=== PATIENT | male | born 2000 | race Asian ===

== ENCOUNTER → 2022-03-14 | Outpatient (CLI) | payer BC ==
[2022-03-14 13:52] LABS: Basophils # (auto) 0 10 ^3/uL (0-0.2); Basophils % (auto) 0.5 % (0.0-2.0); Eosinophils # (auto) 0.1 10 ^3/uL (0-0.8); Eosinophils % (auto) 2.2 % (0.0-7.0); Hematocrit 46.6 % (41.0-53.0); Hemoglobin 15.3 g/dL (13.5-17.5); Lymphocytes # (auto) 1.5 10 ^3/uL (0.4-5.4); Lymphocytes % (auto) 28.1 % (10.0-50.0); Mean Corpuscular Hemoglobin 29.7 pg (28.0-32.0); Mean Corpuscular Hgb Conc. 32.8 g/dL (32.0-36.0); Mean Corpuscular Volume 90.6 fL (80.0-100.0); Monocytes # (auto) 0.4 10 ^3/uL (0-1.3); Neutrophils # (auto) 3.4 10 ^3/uL (1.6-8.6); Neutrophils % (auto) 62.2 % (37.0-80.0); Nucleated Red Blood Cells % 0.1 %; Red Blood Cells 5.14 10^6/uL (4.5-5.90); Red Cell Distribution Width 13.2 % (11.8-14.3); White Blood Cell 5.4 10^3/uL (4.4-10.8)
[2022-03-14 14:18] LABS: Urine Blood Negative /uL (Negative); Urine Specific Gravity 1.023 (1.001-1.035)
[2022-03-14 14:50] LABS: Albumin 4.4 g/dL (3.4-5.0); Calcium 8.9 mg/dL (8.5-10.1); Potassium 4.8 mmol/L (3.5-5.1); Uric Acid 6.1 mg/dL (3.5-7.2)
[2022-03-14 14:57] LABS: BUN/Creatinine Ratio 13.9; Bilirubin, Total 0.4 mg/dL (0.2-1.0); CRP High Sensitivity 0.04 mg/dL (< 0.3); Total Protein 8.1 g/dL (6.4-8.2)
== END | disposition home or self-care (01) ==
LOC: LAB 13:35
PROVIDERS: ATTEND Internal Medicine
DX: E79.0 Hyperuricemia without signs of inflammatory arthritis and tophaceous disease (principal); E78.41 Elevated Lipoprotein(a); R68.89 Other general symptoms and signs; R73.09 Other abnormal glucose; E61.2 Magnesium deficiency; R82.991 Hypocitraturia; E55.9 Vitamin D deficiency, unspecified; D51.9 Vitamin B12 deficiency anemia, unspecified; R82.90 Unspecified abnormal findings in urine
CPT/HCPCS: 36415; 80053; 80061; 81003; 82306; 83540; 84443; 84550; 85025; 85379; 86141

== ENCOUNTER → 2022-05-16 | Outpatient (CLI) | payer BC | END | disposition home or self-care (01) | LOC: Rad HDHVI 14:58 | PROVIDERS: ATTEND Internal Medicine Cardiovascular Disease | DX: R00.2 Palpitations (principal); R07.89 Other chest pain | CPT/HCPCS: 93306 ==

== ENCOUNTER → 2022-05-22 | Outpatient (CLI) | payer BC ==
[~2022-05-22] VITALS: Ht 177.8 cm; Wt 97.5 kg
== END | disposition home or self-care (01) ==
LOC: Rad HDHVI 14:08
PROVIDERS: ATTEND Internal Medicine Cardiovascular Disease
DX: R07.9 Chest pain, unspecified (principal); Z82.49 Family history of ischemic heart disease and other diseases of the circulatory system
CPT/HCPCS: 93017

== ENCOUNTER → 2022-10-22 | Outpatient (CLI) | payer BC ==
[2022-10-22 15:19] LABS: Basophils # (auto) 0.1 10 ^3/uL (0-0.2); Basophils % (auto) 0.9 % (0.0-2.0); Eosinophils # (auto) 0.2 10 ^3/uL (0-0.8); Eosinophils % (auto) 3.1 % (0.0-7.0); Hematocrit 46.4 % (41.0-53.0); Hemoglobin 15.7 g/dL (13.5-17.5); Lymphocytes # (auto) 1.8 10 ^3/uL (0.4-5.4); Lymphocytes % (auto) 29.3 % (10.0-50.0); Mean Corpuscular Hemoglobin 30.6 pg (28.0-32.0); Mean Corpuscular Hgb Conc. 33.9 g/dL (32.0-36.0); Mean Corpuscular Volume 90.2 fL (80.0-100.0); Monocytes # (auto) 0.5 10 ^3/uL (0-1.3); Monocytes % (auto) 8.4 % (0.0-12.0); Neutrophils # (auto) 3.7 10 ^3/uL (1.6-8.6); Neutrophils % (auto) 58.3 % (37.0-80.0); Nucleated Red Blood Cells % 0.2 %; Red Blood Cells 5.14 10^6/uL (4.5-5.90); Red Cell Distribution Width 13.4 % (11.8-14.3); White Blood Cell 6.3 10^3/uL (4.4-10.8)
[2022-10-22 15:30] LABS: Urine Bacteria NONE SEEN /hpf (None Seen); Urine Blood Negative /uL (Negative); Urine Specific Gravity 1.022 (1.001-1.035); Urine WBC 1 /hpf (0 - 3)
[2022-10-22 16:26] LABS: Albumin 4.1 g/dL (3.4-5.0); Calcium 8.8 mg/dL (8.5-10.1); Potassium 4.2 mmol/L (3.5-5.1)
[2022-10-22 16:40] LABS: BUN/Creatinine Ratio 13.2 (10.0-20.0); Bilirubin, Total 0.4 mg/dL (0.2-1.0); Uric Acid 6.4 mg/dL (3.5-7.2)
== END | disposition home or self-care (01) ==
LOC: LAB 15:04
PROVIDERS: ATTEND Nurse Practitioner Family
DX: Z00.00 Encounter for general adult medical examination without abnormal findings (principal)
CPT/HCPCS: 36415; 80053; 80061; 81001; 82306; 83036; 83735; 84443; 84550; 85025; 87086